=== PATIENT | male | born 1940 | race Hispanic/Latino ===

== ENCOUNTER 2016-12-15 09:28 | Day surgery (SDC) | payer MEDICARE ==
[2016-12-09 14:26] VITALS: BMI 26.9
[2016-12-15] MEDS ORDERED: Propofol 10 mg/ml Inj (20 ML) ONE (10:44)
[2016-12-15] MEDS ORDERED: Sodium Chloride 0.9% 1,000 ML IV SCH (11:30)
[2016-12-15 11:37] VITALS: O2SAT 99
[2016-12-15 12:23] VITALS: BP 134/69; PULSE 51; RESP 16; TEMP 98
== END 2016-12-15 13:05 | disposition home or self-care (01) ==
LOC: ENDO 09:28
PROVIDERS: ATTEND Specialist
DX: Z12.11 Encounter for screening for malignant neoplasm of colon (principal); K57.30 Diverticulosis of large intestine without perforation or abscess without bleeding; K64.8 Other hemorrhoids; I25.10 Atherosclerotic heart disease of native coronary artery without angina pectoris; E78.5 Hyperlipidemia, unspecified; M19.90 Unspecified osteoarthritis, unspecified site
CPT/HCPCS: 45378; J2704; J7040 ×2

== ENCOUNTER 2017-07-05 11:33 | Inpatient (IN) | payer MEDICARE ==
[2017-07-05 11:49] VITALS: BMI 27.3
--- NOTE | 2017-07-05 12:35 | ED PDOC ---
Arrival/HPI - History of Present Illness Time/Duration: Other (2 days) Symptom Onset: Gradual Symptom Course: Unchanged Severity Level: Moderate Activities at Onset: Light Context: Standing, Walking <Radha Brown - Last Filed: 07/05/17 12:24> <SladeWil Perry - Last Filed: 07/05/17 13:50> - General Chief Complaint: Shortness Of Breath Time Seen by Provider: 07/05/17 11:57 - History of Present Illness Narrative History of Present Illness (Text): 07/05/17 12:26 Patient is a 77 year old male with a past medical history of CAD with 3 stents ( 2 in 2007 and 1 in 2012), hypertension, hyperlipidemia, and arthritis who presents to the Emergency department for shortness of breath of 2 days duration. Patient says yesterday he was running errands with no problems however when he got home he started feeling short of breath while standing in his home. Patient says he rested and it improved and slept through the night without orthopnea (uses 2 pillows), then when he woke up this morning and started his usual routine he started to become short of breath again, progressing to where he could barely walk from his car to the front door of the hospital without feeling short of breath. Patient says he usually is able to walk as far as he wants without feeling short of breath. Patient admits to associated dizziness that started around the same time, numbness on the top of his head, and a heavy/fatigued feeling in his legs bilaterally. Patient denies fever, chills, chest pain, palpitations, cough, changes in vision/hearing, lower extremity pain/swelling. recent travel, sore throat, nasal/chest congestion, abdominal pain, N&V, diarrhea, and constipation. Of note patient has a stress test in June 2016 that showed thickened left ventricle however unchanged from June 2015 study and an echo around the same time that showed normal EF with mild/mod pulmonary hypertension, dilated left atrium, and mild mitral and tricuspid regurgitation. (Radha Brown) Past Medical History - Cardiac Hx Hypertension: Yes Hx Pacemaker: No - Neurological Hx Paralysis: No Hx Vertigo: Yes - HEENT Hx Cataracts: Yes - Hematological/Oncological Hx Blood Transfusions: No Hx Blood Transfusion Reaction: No - Musculoskeletal/Rheumatological Hx Musculoskeletal Disorders: Yes - Psychiatric Hx Emotional Abuse: No Hx Physical Abuse: No Hx Substance Use: No - Surgical History Hx Cataract Extraction: Yes Other/Comment: Carpal tunnel surgery on right wrist - Anesthesia Hx Anesthesia Reactions: No Hx Malignant Hyperthermia: No - Suicidal Assessment Feels Threatened In Home Enviroment: No <KevinRadha - Last Filed: 07/05/17 12:24> Family/Social History Family/Social History: No Known Family HX Smoking Status: Never Smoked Hx Alcohol Use: No Hx Substance Use: No <KevinRadha - Last Filed: 07/05/17 12:24> Allergies/Home Meds <KevinRadha - Last Filed: 07/05/17 12:24> <SladeWil Vicky - Last Filed: 07/05/17 13:50> Allergies/Adverse Reactions: Allergies No Known Allergies Allergy (Verified 09/04/12 12:43) Home Medications: Home Meds Medication Instructions Recorded Confirmed Atorvastatin [Lipitor] 20 mg PO DAILY 09/04/12 07/05/17 Metoprolol Succinate [Toprol XL] 25 mg PO DAILY 09/04/12 07/05/17 Aspirin [Ecotrin] 325 mg PO DAILY 07/04/15 07/05/17 Meclizine [Antivert] 12.5 mg PO TID 07/04/15 07/05/17 Review of Systems - Physician Review All systems were reviewed & negative as marked: Yes (as per HPI) - Review of Systems Constitutional: Normal Eyes: Normal ENT: Normal Respiratory: SOB. absent: Cough, Wheezing Cardiovascular: CARRIZALES. absent: Chest Pain, Palpitations, Edema, Calf Pain, Orthopnea Gastrointestinal: Normal. absent: Abdominal Pain, Constipation, Diarrhea, Nausea, Vomiting Musculoskeletal: Neck Pain (due to history of arthritis) Skin: absent: Rash Neurological: Dizziness. absent: Headache, Speech Changes Endocrine: Normal Hemo/Lymphatic: Normal Psychiatric: Normal <Radha Brown - Last Filed: 07/05/17 12:24> Physical Exam - Systems Exam Head: Present: Atraumatic, Normocephalic Pupils: Present: PERRL Extroacular Muscles: Present: EOMI Conjunctiva: Present: Normal Mouth: Present: Moist Mucous Membranes Neck: Present: Paraspinal Tenderness (mild, arthritis ) Respiratory/Chest: Present: Good Air Exchange, Rhonchi. No: Respiratory Distress, Accessory Muscle Use, Wheezes, Decreased Breath Sounds, Rales Cardiovascular: Present: Regular Rate and Rhythm, Normal S1, S2. No: Murmurs, Rub, Gallop Abdomen: Present: Normal Bowel Sounds. No: Tenderness, Distention, Peritoneal Signs Back: Present: Normal Inspection Upper Extremity: Present: Normal Inspection. No: Cyanosis, Edema Lower Extremity: Present: Normal Inspection, Edema (mild, non pitting). No: CALF TENDERNESS Neurological: Present: GCS=15, Speech Normal Skin: Present: Warm, Dry, Normal Color. No: Rashes Psychiatric: Present: Alert, Oriented x 3, Normal Insight, Normal Concentration <Radha Brown - Last Filed: 07/05/17 12:24> Vital Signs Temp Pulse Resp BP Pulse Ox 07/05/17 13:26 59 L 18 152/69 H 99 07/05/17 11:48 98.0 F 57 L 18 156/73 H 99 Medical Decision Making <Radha Brown - Last Filed: 07/05/17 12:24> <Wil June - Last Filed: 07/05/17 13:50> ED Course and Treatment: Seen and examined with resident. 77 y/o M c history of CAD s/p 2 stents p/w dyspnea on exertion x 2 days. CXR no acute disease. Enzymes negative. Already took ASA [address] Wright accepts to hospitalist service. (Wil June) - Lab Interpretations Lab Results: 07/05/17 12:39 07/05/17 12:39 Lab Results 07/05/17 12:39: WBC 5.7 D, RBC 3.82, Hgb 10.9 L, Hct 32.2 L, MCV 84.3, MCH 28.5 , MCHC 33.9, RDW 13.0, Plt Count 203, MPV 8.7, Gran % 74.0 H, Lymph % (Auto) 16.2 L, Loving % (Auto) 8.0 H, Eos % (Auto) 0.9 L, Baso % (Auto) 0.9, Gran # 4.25 , Lymph # (Auto) 0.9 L, Loving # (Auto) 0.5, Eos # (Auto) 0.1, Baso # (Auto) 0.05 07/05/17 12:39: Sodium 132, Potassium 4.1, Chloride 97 L, Carbon Dioxide 25, Anion Gap 15, BUN 16, Creatinine 0.7 L, Est GFR ( Amer) > 60, Est GFR ( Non-Af Amer) > 60, Random Glucose 94, Calcium 8.4, Magnesium 1.8, Total Bilirubin 0.6, AST 37, ALT 40, Alkaline Phosphatase 53, Lactate Dehydrogenase 594, Total Creatine Kinase 152, Troponin I < 0.01, NT-Pro-B Natriuret Pep 283, Total Protein 6.7, Albumin 4.0, Globulin 2.7, Albumin/Globulin Ratio 1.5 - RAD Interpretation Radiology Orders: 07/05/17 12:21 CHEST TWO VIEWS (PA/LAT) [RAD] Stat - PA / [employer] / Resident Statement MD/DO has reviewed & agrees with the documentation as recorded. / has examined the patient and agrees with the treatment plan. <Radha Brown - Last Filed: 07/05/17 12:24> Disposition/Present on Arrival - Present on Arrival History of DVT/PE: No History of Uncontrolled Diabetes: No Urinary Catheter: No History of Decub. Ulcer: No History Surgical Site Infection Following: None <Radha Brown - Last Filed: 07/05/17 12:24> - Present on Arrival Any Indicators Present on Arrival: No - Disposition Have Diagnosis and Disposition been Completed?: Yes Disposition Time: 13:31 Patient Plan: Observation, Telemetry <Wil June - Last Filed: 07/05/17 13:50> - Disposition Diagnosis: Dyspnea on exertion Disposition: HOSPITALIZED Condition: FAIR Forms: [employer] (Urdu)
[2017-07-05 12:55] LABS: BASO # 0.05 K/mm3 (0.0-2.0); BASO % 0.9 % (0.0-3.0); EOS # 0.1 (0.0-0.7); EOS % 0.9 % (1.5-5.0); GRAN # 4.25 (1.4-6.5); HEMOGLOBIN 10.9 g/dL (14.0-18.0); LYMPH # 0.9 (1.2-3.4); LYMPH % 16.2 % (22.0-35.0); MEAN CELL VOLUME 84.3 fl (80.0-105.0); MEAN CORPUSCULAR HEMOGLOBIN 28.5 pg (25.0-35.0); MEAN CORPUSCULAR HGB CONC 33.9 g/dl (31.0-37.0); MEAN PLATELET VOLUME 8.7 fl (7.0-11.0); MONO # 0.5 (0.1-0.6); RBC 3.82 10^6/uL (3.5-6.1); WHITE BLOOD COUNT 5.7 10^3/ul (4.5-11.0)
[2017-07-05 13:07] LABS: ALB/GLOB RATIO 1.5 (1.1-1.8); ALT/SGPT 40 U/L (7-56); AST/SGOT 37 U/L (17-59); BLOOD UREA NITROGEN 16 mg/dL (7-21); CALCIUM 8.4 mg/dL (8.4-10.5); GFR AFRICAN-AMERICAN > 60; GFR NON-AFRICAN AMERICAN > 60
[2017-07-05 13:19] LABS: B-TYPE NATRIURETIC PEPTIDE 283 pg/mL (0-450); TROPONIN I < 0.01 ng/mL
--- NOTE | 2017-07-05 14:14 | RAD ---
HISTORY: SOB COMPARISON: No prior. TECHNIQUE: Chest PA and lateral FINDINGS: LUNGS: No active pulmonary disease. PLEURA: No significant pleural effusion identified. No pneumothorax apparent. CARDIOVASCULAR: Normal. OSSEOUS STRUCTURES: No significant abnormalities. VISUALIZED UPPER ABDOMEN: Normal. OTHER FINDINGS: None. IMPRESSION: No active disease.
--- NOTE | 2017-07-05 14:51 | CP.PCM.HP ---
<Franko Basurto - Last Filed: 07/05/17 14:54> History of Present Illness - History of Present Illness History of Present Illness: Patient is a 77M with a PMH of cardiac cath x2 (2007 x2 stent, LAD/RCA and 2015 x1 stent) comes in complaining of dyspnea on exertion. He states that he started having episodes of SOB earlier in the week but today it got to the point that he was unable to walk to the bathroom without getting SOB where he had to stop to catch his breath. On a normal day he is able to exercise on the treadmill and elliptical without a problem. He states he came to the hospital today for cardiac rehab the he usually does three times a week but on getting to the elevator he was incredibly SOB so he decided to go to the ED. He denies having ant chest pain, palpitations, nausea, vomiting or diaphoresis. He sees Dr. Davis as cardio. He has had a long history of dizziness that has been thoroughly worked up by a neurologist and takes antivert at home for this. Denies any orthopnea or PND and is able to lay flat to sleep. Denies any episodes of syncope or blurry vision but still gets these episodes of dizziness as previously described. The SOB is relieved with rest. Denies any recent illness, sick contacts or recent travel. Has this bilateral leg swelling that he states he has had for over a decade. PMH: cardiac cath x two stents, No CA PSH: Right hand surgery for carpal tunnel, bilateral cataracts FH: mother in mid 80s 2 years after an CA, father in late 90s 2/2 to PNA SH: 3 packs per day from the ages of 12-21, denies alcohol or drug use Meds: Metoprolol 25 Daily, ASA 325 QD, Lipitor 20 HS, Antiver TID PRN Allergies: NKA PMD: Dr. Duong Cardio: Dr. Davis Present on Admission - Present on Admission Any Indicators Present on Admission: No Review of Systems - Review of Systems Review of Systems: per hpi Past Patient History - Past Social History Smoking Status: Never Smoked - CARDIAC Hx Hypertension: Yes Hx Pacemaker: No - NEUROLOGICAL Hx Paralysis: No Hx Vertigo: Yes - HEENT Hx Cataracts: Yes - HEMATOLOGICAL/ONCOLOGICAL Hx Blood Transfusions: No Hx Blood Transfusion Reaction: No - MUSCULOSKELETAL/RHEUMATOLOGICAL Hx Musculoskeletal Disorders: Yes - PSYCHIATRIC Hx Emotional Abuse: No Hx Physical Abuse: No Hx Substance Use: No - SURGICAL HISTORY Hx Cataract Extraction: Yes Other/Comment: Carpal tunnel surgery on right wrist - ANESTHESIA Hx Anesthesia Reactions: No Hx Malignant Hyperthermia: No Meds Allergies/Adverse Reactions: Allergies Allergy/AdvReac Type Severity Reaction Status Date / Time No Known Allergies Allergy Verified 07/05/17 21:16 Physical Exam - Constitutional Appears: Well - Head Exam Head Exam: ATRAUMATIC, NORMAL INSPECTION, NORMOCEPHALIC - Eye Exam Eye Exam: EOMI, Normal appearance, PERRL Pupil Exam: NORMAL ACCOMODATION, PERRL - ENT Exam ENT Exam: Mucous Membranes Moist, Normal Exam - Neck Exam Neck exam: Positive for: Normal Inspection - Respiratory Exam Respiratory Exam: Clear to Auscultation Bilateral, NORMAL BREATHING PATTERN - Cardiovascular Exam Cardiovascular Exam: REGULAR RHYTHM - GI/Abdominal Exam GI & Abdominal Exam: Normal Bowel Sounds, Soft. absent: Distended, Tenderness - Extremities Exam Extremities exam: Positive for: joint swelling (bilateral 1+ pitting edema of the lower extremities), normal inspection - Back Exam Back exam: NORMAL INSPECTION - Neurological Exam Neurological exam: Alert, CN II-XII Intact, Normal Gait, Oriented x3, Reflexes Normal - Psychiatric Exam Psychiatric exam: Normal Affect, Normal Mood - Skin Skin Exam: Dry, Intact, Normal Color, Warm Results - Vital Signs Recent Vital Signs: Last Vital Signs Temp 98.0 F 07/05/17 11:48 Pulse 59 L 07/05/17 13:26 Resp 18 07/05/17 13:26 BP 152/69 H 07/05/17 13:26 Pulse Ox 99 07/05/17 13:26 - Labs Result Diagrams: 07/05/17 12:39 07/05/17 12:39 Assessment & Plan (1) Dyspnea on exertion Assessment and Plan: Cardio (Davis) Troponin Q6H x 2, first trop negative EKG Q6H x 2, First EKG sinus christa D-Dimer - F/U Echo - F/U BNP negative Status: Acute Priority: High (2) CAD, multiple vessel Assessment and Plan: ASA 325 QD Lipitor 20 PO HS Metoprolol Succ 25 PO QD Status: Chronic Priority: High (3) Dizziness Assessment and Plan: Long history, previously worked up Antivert 12.5 PO TID PRN Status: Chronic Priority: Low (4) Prophylactic measure Assessment and Plan: Heparin SCD CI 2/2 to swelling and r/o dvt No GI PPx indicated at this time Status: Acute Priority: Low <Juliana Rebolledo - Last Filed: 07/06/17 11:20> Results - Vital Signs Recent Vital Signs: Last Vital Signs Temp 97.4 F L 07/06/17 06:00 Pulse 58 L 07/06/17 09:49 Resp 18 07/06/17 06:00 BP 145/78 07/06/17 09:32 Pulse Ox 98 07/06/17 09:00 - Labs Result Diagrams: 07/06/17 06:00 07/06/17 06:00 Attending/Attestation - Attestation I have personally seen and examined this patient.: Yes I have fully participated in the care of the patient.: Yes I have reviewed all pertinent clinical information: Yes Notes (Text): I have seen and examined the patient at bedside. Agree with the above note with the following additions/ exceptions: Briefly this is 77 year old male with history of cardiac cath s/p 2 stents (RCA & LAD)who came for evaluation of CARRIZALES which lasted for couple of hours. Denies any symptoms now. Patient has been compliant with his medications. First set of troponin and EKG is unremarkable. Will order d dimer, echo and cardiology consult. BNP and CXR negative for vascular congestion. Upon discharge patient will follow up with Dr Araiza and Dr Davis. Dr Juliana Rebolledo
[2017-07-05 15:20] LABS: IRON 69 ug/dL (45-180)
[2017-07-05 15:21] LABS: HDL CHOLESTEROL 43 mg/dL (29-60)
[2017-07-05 15:30] LABS: % IRON SATURATION 21 % (20-55); TOTAL IRON BINDING CAPACITY 322 ug/dL (261-462)
[2017-07-05 15:32] LABS: LDL CHOLESTEROL 55 mg/dL (0-129)
[2017-07-05 20:48] LABS: FERRITIN 82.5 ng/mL
[2017-07-05 21:20] LABS: FOLATE > 20.0 ng/mL
[2017-07-05] MEDS ORDERED: Pneumococcal 23-Valent Vaccine IM ONE (22:46)
[2017-07-06 06:46] LABS: BASO # 0.1 K/mm3 (0.0-2.0); BASO % 1.8 % (0.0-3.0); EOS # 0.1 (0.0-0.7); EOS % 2.5 % (1.5-5.0); GRAN # 3.4 (1.4-6.5); GRAN % 61.3 % (50.0-68.0); HEMOGLOBIN 12.1 g/dL (14.0-18.0); LYMPH # 1.4 (1.2-3.4); LYMPH % 24.9 % (22.0-35.0); MEAN CELL VOLUME 84.7 fl (80.0-105.0); MEAN CORPUSCULAR HEMOGLOBIN 28.5 pg (25.0-35.0); MEAN CORPUSCULAR HGB CONC 33.6 g/dl (31.0-37.0); MEAN PLATELET VOLUME 8.8 fl (7.0-11.0); MONO # 0.5 (0.1-0.6); MONO % 9.5 % (1.0-6.0); RBC 4.25 10^6/uL (3.5-6.1); RED CELL DISTRIBUTION WIDTH 13.4 % (11.5-14.5); WHITE BLOOD COUNT 5.6 10^3/ul (4.5-11.0)
[2017-07-06 07:18] LABS: T4 7.3 ug/dL (5.5-11.0)
[2017-07-06 07:31] LABS: ALB/GLOB RATIO 1.4 (1.1-1.8); ALBUMIN 4.1 g/dL (3.0-4.8); ALT/SGPT 29 U/L (7-56); AST/SGOT 45 U/L (17-59); BLOOD UREA NITROGEN 14 mg/dL (7-21); CALCIUM 8.8 mg/dL (8.4-10.5); GFR AFRICAN-AMERICAN > 60; GFR NON-AFRICAN AMERICAN > 60
--- NOTE | 2017-07-06 08:17 | CARD ---
APPROVED REPORT EKG Measurement Heart [id number] ME [id number] <Conclusion> Sinus bradycardia Otherwise normal ECG
[2017-07-06] MEDS: Metoprolol Succinate 25 mg XL Tab PO SCH (09:32)
[2017-07-06] MEDS: Aspirin 325 mg EC Tablets PO SCH (09:33)
[2017-07-06] MEDS ORDERED: Enoxaparin 80 mg Syringe SC ONE ×2 (10:00→14:00)
--- NOTE | 2017-07-06 11:24 | CP.PCM.PN ---
<Franko Basurto - Last Filed: 07/06/17 11:18> Subjective - Date & Time of Evaluation Date of Evaluation: 07/06/17 Time of Evaluation: 11:18 - Subjective Subjective: Patient seen and examined at bedside. No complaints at this time. Was able to ambulate to the bathroom today without any SOB. Denies any chest pain or diaphoresis. Objective - Vital Signs/Intake and Output Vital Signs (last 24 hours): Temp Pulse Resp BP Pulse Ox 97.4 F L 58 L 18 145/78 98 07/06/17 06:00 07/06/17 09:49 07/06/17 06:00 07/06/17 09:32 07/06/17 09:00 - Medications Medications: Current Medications Aspirin (Ecotrin) 325 mg PO DAILY [facility] Last Admin: 07/06/17 09:33 Dose: 325 mg Atorvastatin Calcium (Lipitor) 20 mg PO DAILY [facility] Last Admin: 07/06/17 09:33 Dose: 20 mg Clopidogrel Bisulfate (Plavix) 75 mg PO DAILY [facility] Enoxaparin Sodium (Lovenox) 70 mg SC ONCE ONE Stop: 07/06/17 14:01 Meclizine HCl (Antivert) 12.5 mg PO TID PRN PRN Reason: Dizziness Metoprolol Succinate (Toprol Xl) 25 mg PO DAILY [facility] Last Admin: 07/06/17 09:32 Dose: 25 mg - Constitutional Appears: Well - Head Exam Head Exam: ATRAUMATIC, NORMAL INSPECTION, NORMOCEPHALIC - Eye Exam Eye Exam: EOMI, Normal appearance, PERRL Pupil Exam: NORMAL ACCOMODATION, PERRL - ENT Exam ENT Exam: Mucous Membranes Moist, Normal Exam - Neck Exam Neck Exam: Full ROM, Normal Inspection. absent: Lymphadenopathy - Respiratory Exam Respiratory Exam: Clear to Ausculation Bilateral, NORMAL BREATHING PATTERN - Cardiovascular Exam Cardiovascular Exam: REGULAR RHYTHM, +S1, +S2. absent: Murmur - GI/Abdominal Exam GI & Abdominal Exam: Soft, Normal Bowel Sounds. absent: Tenderness - Extremities Exam Extremities Exam: Full ROM, Normal Capillary Refill, Normal Inspection. absent : Joint Swelling, Pedal Edema - Back Exam Back Exam: NORMAL INSPECTION - Neurological Exam Neurological Exam: Alert, Awake, CN II-XII Intact, Normal Gait, Oriented x3 - Psychiatric Exam Psychiatric exam: Normal Affect, Normal Mood - Skin Skin Exam: Dry, Intact, Normal Color, Warm Assessment and Plan - Assessment and Plan (Free Text) Assessment: (1) Dyspnea on exertion Assessment and Plan: Cardio (Davis) Trops negative x3 EKG x3 do not show any ST changes or arrythmogenic intervals D-Dimer - negative Echo - F/U BNP negative Status: Acute Priority: High (2) CAD, multiple vessel Assessment and Plan: Going for cath tomorrow - NPO PMN lovenox 70 x1 Plavix 600 x1 Plavix 75 QD ASA 325 QD Lipitor 20 PO HS Metoprolol Succ 25 PO QD Status: Chronic Priority: High (3) Dizziness Assessment and Plan: Long history, previously worked up Antivert 12.5 PO TID PRN Status: Chronic Priority: Low (4) Prophylactic measure Assessment and Plan: Lovenox and Plavix SCD CI 2/2 to swelling and r/o dvt No GI PPx indicated at this time Status: Acute Priority: Low <Juliana Rebolledo - Last Filed: 07/08/17 15:03> Objective - Vital Signs/Intake and Output Vital Signs (last 24 hours): Temp Pulse Resp BP Pulse Ox 97.6 F 63 20 133/64 97 07/08/17 06:47 07/08/17 10:00 07/08/17 06:47 07/08/17 09:12 07/08/17 06:47 Intake and Output: 07/08/17 07/08/17 06:59 18:59 Intake Total 300 Balance 300 - Labs Labs: 07/08/17 05:30 07/08/17 05:30 Attending/Attestation - Attestation I have personally seen and examined this patient.: Yes I have fully participated in the care of the patient.: Yes I have reviewed all pertinent clinical information, including history, physical exam and plan: Yes Notes (Text): I have seen and examined the patient at bedside. Agree with the above note with the following additions/ exceptions: Briefly this is 77 year old male with history of cardiac cath s/p 2 stents (RCA & LAD)who came for evaluation of CARRIZALES which lasted for couple of hours. Patient feels better now. Patient has been compliant with his medications. Serial troponin and EKG is unremarkable. D Dimer is negative. Echo pending. Cardiology consult appreciated. Plan for cardiac cath pending. BNP and CXR negative for vascular congestion. Upon discharge patient will follow up with Dr Araiza and Dr Davis. Dr Juliana Rebolledo
--- NOTE | 2017-07-06 12:09 | CON ---
DATE: 07/06/2017 CARDIOLOGY CONSULTATION: HISTORY: The patient is a 77-year-old male, who presents with progressive exertional shortness of breath to a point where he was unable to walk less than a quarter block. He denies angina. The patient's past medical history is notable for hypercholesterolemia as well as hypertension. He has had PTCA and stent in the past. His last stress test which was less than 12 months ago was unremarkable. Because of his progressive symptoms to including symptoms at rest, the patient will be considered for cardiac catheterization. SOCIAL HISTORY: The patient does not smoke. REVIEW OF SYSTEMS: Fourteen-point review of systems was reviewed in detail. No additional symptoms other than the ones above. PHYSICAL EXAMINATION: VITAL SIGNS: Blood pressure is 149/74 with the heart rates in the 50s. NECK: Negative JVD. LUNGS: Without rales. HEART: Reveals S1, S2. EXTREMITIES: Without edema. LABORATORY DATA: Hemoglobin is 12.1. Chemistries: BUN and creatinine are unremarkable. Troponins are negative x2. IMPRESSION: 1. Progressive anginal equivalent. 2. High probability for new CAD lesion. 3. History of percutaneous transluminal coronary angioplasty and stents in the past. 4. Hypercholesterolemia. 5. Hypertension. PLAN: Given these findings, we will start the patient on aspirin and Plavix. The subcu Lovenox will be ordered. I have discussed cardiac catheterization with the patient and family in detail. They are agreeable. Gary Davis MD
--- NOTE | 2017-07-06 14:35 | CARD ---
APPROVED REPORT EKG Measurement Heart [id number] [place] [id number] <Conclusion> Sinus bradycardia Otherwise normal ECG
--- NOTE | 2017-07-06 17:27 | CARD ---
APPROVED REPORT EXAM: Two-dimensional and M-mode echocardiogram with Doppler and color Doppler. INDICATION Cardiac Disease: CAD 2D DIMENSIONS Left Atrium (2D)4.9 (1.6-4.0cm)IVSd1.0 (0.7-1.1cm) LVDd5.7 (3.9-5.9cm)PWd1.0 (0.7-1.1cm) LVDs3.6 (2.5-4.0cm)FS (%) 36.8 % LVEF (%)66.0 (>50%) M-Mode DIMENSIONS Aortic Root3.20 (2.2-3.7cm)Aortic Cusp Exc.1.60 (1.5-2.0cm) Aortic Valve AoV Peak Xhkonbzk080.0cm/sAoV VTI45.0cmAO Peak GR.13mmHg LVOT Peak Gytmjmub946.0cm/sLVOT VTI29.90cmAO Mean GR.8mmHg AI P 1/2 Gnev698bl Mitral Valve MV E Uvkvgedf00.8cm/sMV A Emwqsalf387.0cm/sE/A ratio0.7 TDI Lateral E' Peak V7.99cm/sMedial E' Peak V7.12cm/sE/Lateral E'10.7 E/Medial E'12.1 Pulmonary Valve PV Peak Dosajgjr18.4cm/sPV Peak Grad.1mmHg Tricuspid Valve TR Peak Jkyprscu289qi/sRAP [id number] Peak Gr.30mmHg [id number] LEFT VENTRICLE The left ventricle is normal size. There is normal left ventricular wall thickness. The left ventricular function is normal. The left ventricular ejection fraction is within the normal range. Transmitral Doppler flow pattern is Grade I-abnormal relaxation pattern. RIGHT VENTRICLE The right ventricle is normal size. There is normal right ventricular wall thickness. The right ventricular systolic function is normal. ATRIA The left atrium is mildly dilated. The right atrium size is normal. AORTIC VALVE The aortic valve is moderately sclerotic. There is mild to moderate aortic regurgitation. There is trace valvular aortic stenosis. MITRAL VALVE The mitral valve is mildly thickened. Mitral regurgitation is mild. TRICUSPID VALVE There is mild tricuspid regurgitation. There is mild pulmonary hypertension. GREAT VESSELS The aortic root is normal in size. PERICARDIAL EFFUSION There is no pericardial effusion. <Conclusion> The left ventricle is normal size. There is normal left ventricular wall thickness. The left ventricular function is normal. The left ventricular ejection fraction is within the normal range. Transmitral Doppler flow pattern is Grade I-abnormal relaxation pattern. There is mild to moderate aortic regurgitation. Mitral regurgitation is mild. There is mild tricuspid regurgitation. There is mild pulmonary hypertension.
[2017-07-07 06:33] LABS: BASO # 0.08 K/mm3 (0.0-2.0); BASO % 1.6 % (0.0-3.0); EOS # 0.2 (0.0-0.7); EOS % 3.3 % (1.5-5.0); GRAN # 2.3 (1.4-6.5); GRAN % 47.2 % (50.0-68.0); HEMOGLOBIN 12.3 g/dL (14.0-18.0); LYMPH # 1.8 (1.2-3.4); LYMPH % 36.6 % (22.0-35.0); MEAN CELL VOLUME 84.4 fl (80.0-105.0); MEAN CORPUSCULAR HGB CONC 34.4 g/dl (31.0-37.0); MEAN PLATELET VOLUME 8.7 fl (7.0-11.0); MONO # 0.6 (0.1-0.6); MONO % 11.3 % (1.0-6.0); RBC 4.24 10^6/uL (3.5-6.1); RED CELL DISTRIBUTION WIDTH 13.2 % (11.5-14.5); WHITE BLOOD COUNT 4.9 10^3/ul (4.5-11.0)
[2017-07-07] MEDS: Aspirin 325 mg EC Tablets PO SCH (06:42)
[2017-07-07] MEDS ORDERED: Lidocaine 2% Inj (20ml) ONE (06:51)
[2017-07-07] MEDS ORDERED: Midazolam 2 MG/2 ML VIAL ONE ×2 (06:51→07:11)
[2017-07-07] MEDS ORDERED: Phenylephrine 10 mg/ml Inj ONE (06:51)
[2017-07-07] MEDS ORDERED: Iohexol 350mgl/ml 50 ML ONE (06:52)
[2017-07-07] MEDS ORDERED: Nitroglycerin 50mg in D5W 0 MG/0 ML BOTTLE IV ONE (06:52)
[2017-07-07] MEDS ORDERED: Iodixanol 320 MG/ML 100 ML BOTTLE IV ONE (06:52)
[2017-07-07] MEDS ORDERED: Iodixanol 320 MG/ML 200 ML BOTTLE IV ONE (06:52)
[2017-07-07 07:13] LABS: ALB/GLOB RATIO 1.4 (1.1-1.8); ALT/SGPT 33 U/L (7-56); AST/SGOT 47 U/L (17-59); BLOOD UREA NITROGEN 19 mg/dL (7-21); CALCIUM 8.5 mg/dL (8.4-10.5); GFR AFRICAN-AMERICAN > 60; GFR NON-AFRICAN AMERICAN > 60
[2017-07-07] MEDS ORDERED: Sodium Chloride 0.9% 1,000 ML IV SCH (09:15)
[2017-07-07] MEDS: Metoprolol Succinate 25 mg XL Tab PO SCH (09:22)
--- NOTE | 2017-07-07 11:21 | CP.PCM.PN ---
<Franko Basurto - Last Filed: 07/07/17 11:15> Subjective - Date & Time of Evaluation Date of Evaluation: 07/07/17 Time of Evaluation: 11:15 - Subjective Subjective: patient seen and examined at bedside. went for cath this am for which he tolerated well. No other complaints at this time. Objective - Vital Signs/Intake and Output Vital Signs (last 24 hours): Temp Pulse Resp BP Pulse Ox 97.9 F 48 L 16 125/77 95 07/07/17 09:15 07/07/17 10:15 07/07/17 10:15 07/07/17 10:15 07/07/17 06:00 Intake and Output: 07/07/17 07/07/17 06:59 18:59 Intake Total 180 Output Total 3 Balance 177 - Medications Medications: Current Medications Aspirin (Ecotrin) 81 mg PO DAILY [facility] Last Admin: 07/07/17 09:21 Dose: Not Given Atorvastatin Calcium (Lipitor) 20 mg PO DAILY [facility] Last Admin: 07/07/17 09:22 Dose: 20 mg Atorvastatin Calcium (Lipitor) 40 mg PO DIN [place] Clopidogrel Bisulfate (Plavix) 75 mg PO DAILY [facility] Last Admin: 07/07/17 09:22 Dose: Not Given Sodium Chloride (Sodium Chloride 0.9%) 1,000 mls @ 100 mls/hr IV .Q10H [facility] Stop: 07/07/17 15:00 Last Admin: 07/07/17 09:23 Dose: 100 mls/hr Meclizine HCl (Antivert) 12.5 mg PO TID PRN PRN Reason: Dizziness Metoprolol Succinate (Toprol Xl) 25 mg PO DAILY [facility] Last Admin: 07/07/17 09:22 Dose: 25 mg - Labs Labs: 07/07/17 05:30 07/07/17 05:30 - Constitutional Appears: Well - Head Exam Head Exam: ATRAUMATIC, NORMAL INSPECTION, NORMOCEPHALIC - Eye Exam Eye Exam: EOMI, Normal appearance, PERRL Pupil Exam: NORMAL ACCOMODATION, PERRL - ENT Exam ENT Exam: Mucous Membranes Moist, Normal Exam - Neck Exam Neck Exam: Full ROM, Normal Inspection. absent: Lymphadenopathy - Respiratory Exam Respiratory Exam: Clear to Ausculation Bilateral, NORMAL BREATHING PATTERN - Cardiovascular Exam Cardiovascular Exam: REGULAR RHYTHM, +S1, +S2. absent: Murmur - GI/Abdominal Exam GI & Abdominal Exam: Soft, Normal Bowel Sounds. absent: Distended, Tenderness - Extremities Exam Extremities Exam: Full ROM, Normal Capillary Refill, Normal Inspection. absent : Joint Swelling, Pedal Edema - Back Exam Back Exam: NORMAL INSPECTION - Neurological Exam Neurological Exam: Alert, Awake, CN II-XII Intact, Normal Gait, Oriented x3 - Psychiatric Exam Psychiatric exam: Normal Affect, Normal Mood - Skin Skin Exam: Dry, Intact, Normal Color, Warm Assessment and Plan - Assessment and Plan (Free Text) Assessment: (1) Dyspnea on exertion Assessment and Plan: Cardio (Davis) Trops and EKG normal Cath today with stent in RCA. Will monitor overnight and have patient return next week for stenting of LAD Status: Acute Priority: High (2) CAD, multiple vessel Assessment and Plan: ASA 81 QD Lipitor 40 PO HS Metoprolol Succ 25 PO QD Plavix 75 PO QD Status: Chronic Priority: High (3) Dizziness Assessment and Plan: Long history, previously worked up Antivert 12.5 PO TID PRN Status: Chronic Priority: Low (4) Prophylactic measure Assessment and Plan: SCD CI 2/2 to swelling and r/o dvt No GI PPx indicated at this time Status: Acute Priority: Low <Juliana Rebolledo - Last Filed: 07/08/17 15:04> Objective - Vital Signs/Intake and Output Vital Signs (last 24 hours): Temp Pulse Resp BP Pulse Ox 97.6 F 63 20 133/64 97 07/08/17 06:47 07/08/17 10:00 07/08/17 06:47 07/08/17 09:12 07/08/17 06:47 Intake and Output: 07/08/17 07/08/17 06:59 18:59 Intake Total 300 Balance 300 - Labs Labs: 07/08/17 05:30 07/08/17 05:30 Attending/Attestation - Attestation I have personally seen and examined this patient.: Yes I have fully participated in the care of the patient.: Yes I have reviewed all pertinent clinical information, including history, physical exam and plan: Yes Notes (Text): I have seen and examined the patient at bedside. Agree with the above note with the following additions/ exceptions: Briefly this is 77 year old male with history of cardiac cath s/p 2 stents (RCA & LAD)who came for evaluation of CARRIZALES which lasted for couple of hours. Serial troponin and EKG is unremarkable. D Dimer is negative. Echo pending. Cardiology consult appreciated. Plan for cardiac cath today. BNP and CXR negative for vascular congestion. Upon discharge patient will follow up with Dr Araiza and Dr Davis. Dr Juliana Rebolledo
--- NOTE | 2017-07-07 11:59 | CARDCATH ---
PROCEDURE DATE: 07/07/2017 HISTORY: The patient is a 77-year-old male with multiple cardiac risk factors including hypercholesterolemia and hypertension and is status post multivessel PTCA and stent in the past, who presents with exertional shortness of breath. Stress test performed 8 months ago revealed no ischemia. Because of his ongoing symptoms including progressive symptoms at rest, cardiac catheterization was recommended. PROCEDURE: Left heart catheterization with coronary arteriography, left ventriculogram, supra-aortic valvular injection as well as PTCA and stent of an RCA. The right femoral artery was cannulated with a 6-[place] sheath. There were no complications. I performed moderate sedation, which included the presence of an independent trained observer that assisted in monitoring the patient's level of consciousness and physiologic status. After administration of Versed and fentanyl, my intra service time was 30 minutes. The findings on catheterization revealed a left ventricle that contracted normally. Estimated ejection fraction of 60%. Supra-aortic valvular injection revealed no aortic insufficiency. His coronary anatomy revealed a patent stent in the midportion of the RCA which is a dominant vessel. Just proximal to the RCA, there is a 50% stenoses noted. Distal to the RCA, there was a 70-80% stenoses noted. The left main artery revealed intimal irregularities without significant stenoses. The LAD was diffusely diseased with diffuse atherosclerosis. In the proximal portion, there was a 40-50% stenosis noted. In the midportion, there was a tortuous 80-90% stenoses noted in the LAD. The circumflex artery and obtuse marginal branch revealed diffuse atherosclerosis without critical lesions. The patient was started on intravenous Angiomax on the fluoroscopic guide, the guiding catheter was placed in the ostium of the RCA. An 0.014 ATW wire was used to cross the critical lesion. A 2.5 balloon was utilized to predilate the lesion. A 2.75 x 15 mm drug-eluting stent was placed and deployed at 14 atmospheres of pressure in the mid RCA lesion. Repeat coronary arteriography revealed an excellent result with no residual stenosis and VERNA III flow. Angio-Seal was used to close the femoral artery site. The patient tolerated the procedure well. In summary, the procedure was successful PTCA and stent of the mid RCA stenoses. Cardiac catheterization reveals multivessel CAD. Given these findings, we will bring the patient back in 1 week for PTCA and stent of the mid LAD. The patient will need to remain on aspirin and Plavix with Plavix for at least a year. Gary Davis MD [facility] # [id number]
--- NOTE | 2017-07-07 14:09 | CARD ---
APPROVED REPORT EKG Measurement Heart [id number] [id number] <Conclusion> Sinus bradycardia Otherwise normal ECG
[2017-07-08 06:30] LABS: BASO # 0.09 K/mm3 (0.0-2.0); BASO % 1.5 % (0.0-3.0); EOS # 0.2 (0.0-0.7); EOS % 2.8 % (1.5-5.0); GRAN # 3.73 (1.4-6.5); GRAN % 62.6 % (50.0-68.0); HEMOGLOBIN 12.1 g/dL (14.0-18.0); LYMPH # 1.3 (1.2-3.4); LYMPH % 21.4 % (22.0-35.0); MEAN CELL VOLUME 84.8 fl (80.0-105.0); MEAN CORPUSCULAR HEMOGLOBIN 28.7 pg (25.0-35.0); MEAN CORPUSCULAR HGB CONC 33.9 g/dl (31.0-37.0); MEAN PLATELET VOLUME 8.7 fl (7.0-11.0); MONO # 0.7 (0.1-0.6); MONO % 11.7 % (1.0-6.0); RBC 4.21 10^6/uL (3.5-6.1); RED CELL DISTRIBUTION WIDTH 13.4 % (11.5-14.5)
[2017-07-08 06:48] VITALS: RESP 20; TEMP 97.6; O2SAT 97
[2017-07-08 07:26] LABS: ALB/GLOB RATIO 1.3 (1.1-1.8); ALBUMIN 3.7 g/dL (3.0-4.8); ALT/SGPT 29 U/L (7-56); AST/SGOT 32 U/L (17-59); BLOOD UREA NITROGEN 13 mg/dL (7-21); CALCIUM 8.5 mg/dL (8.4-10.5); GFR AFRICAN-AMERICAN > 60; GFR NON-AFRICAN AMERICAN > 60
[2017-07-08] MEDS: Metoprolol Succinate 25 mg XL Tab PO SCH (09:12)
[2017-07-08 09:14] VITALS: BP 133/64
--- NOTE | 2017-07-08 10:06 | PN ---
DATE: 07/08/2017 CARDIOLOGY FOLLOWUP SUBJECTIVE: The patient is chest pain free. OBJECTIVE: VITAL SIGNS: Blood pressure is 133/64, heart rate is in the 70s. NECK: Negative JVD. LUNGS: Without rales. HEART: Reveal S1, S2. EXTREMITIES: Without edema. The right groin site is stable. DATA: Hemoglobin is 12.1, BUN and creatinine unremarkable. IMPRESSION: 1. Stable post percutaneous transluminal coronary angioplasty and stent of an right coronary artery. 2. Coronary artery disease. 3. Multivessel coronary artery disease. 4. Dyspnea. 5. Angina. Given these findings, the patient is stable for discharge today. He is scheduled to come back next week for PTCA and stent of the mid LAD stenoses. Gary Davis MD
[2017-07-08 10:44] VITALS: PULSE 63
--- NOTE | 2017-07-08 11:25 | CP.PCM.DIS ---
<Franko Basurto - Last Filed: 07/08/17 11:31> Provider - Provider Date of Admission: 07/06/17 11:03 Attending physician: Juliana Rebolledo MD Primary care physician: Lavon Duong MD Consults: Linda: Ryan Time Spent in preparation of Discharge (in minutes): 45 Hospital Course - Lab Results Lab Results: Most Recent Lab Values WBC 6.0 10^3/ul (4.5-11.0) D 07/08/17 05:30 RBC 4.21 10^6/uL (3.5-6.1) 07/08/17 05:30 Hgb 12.1 g/dL (14.0-18.0) L 07/08/17 05:30 Hct 35.7 % (42.0-52.0) L 07/08/17 05:30 MCV 84.8 fl (80.0-105.0) 07/08/17 05:30 MCH 28.7 pg (25.0-35.0) 07/08/17 05:30 MCHC 33.9 g/dl (31.0-37.0) 07/08/17 05:30 RDW 13.4 % (11.5-14.5) 07/08/17 05:30 Plt Count 209 10^3/uL (120.0-450.0) 07/08/17 05:30 MPV 8.7 fl (7.0-11.0) 07/08/17 05:30 Gran % 62.6 % (50.0-68.0) 07/08/17 05:30 Lymph % (Auto) 21.4 % (22.0-35.0) L 07/08/17 05:30 [place] % (Auto) 11.7 % (1.0-6.0) H 07/08/17 05:30 Eos % (Auto) 2.8 % (1.5-5.0) 07/08/17 05:30 Baso % (Auto) 1.5 % (0.0-3.0) 07/08/17 05:30 Gran # 3.73 (1.4-6.5) 07/08/17 05:30 Lymph # (Auto) 1.3 (1.2-3.4) 07/08/17 05:30 [place] # (Auto) 0.7 (0.1-0.6) H 07/08/17 05:30 Eos # (Auto) 0.2 (0.0-0.7) 07/08/17 05:30 Baso # (Auto) 0.09 K/mm3 (0.0-2.0) 07/08/17 05:30 Retic Count 1.04 % (0.5-1.5) 07/05/17 19:07 D-Dimer, Quantitative < 200 ng/mL (0-243) 07/05/17 12:39 Sodium 143 mmol/L (132-148) 07/08/17 05:30 Potassium 4.2 mmol/L (3.6-5.0) 07/08/17 05:30 Chloride 107 mmol/L (98-107) 07/08/17 05:30 Carbon Dioxide 25 mmol/L (21-33) 07/08/17 05:30 Anion Gap 15 (10-20) 07/08/17 05:30 BUN 13 mg/dL (7-21) 07/08/17 05:30 Creatinine 0.7 mg/dl (0.8-1.5) L 07/08/17 05:30 Est GFR ( Amer) > 60 07/08/17 05:30 Est GFR (Non-Af Amer) > 60 07/08/17 05:30 Random Glucose 91 mg/dL (70-110) 07/08/17 05:30 Hemoglobin A1c 5.5 % (4.2-6.5) 07/05/17 12:39 Calcium 8.5 mg/dL (8.4-10.5) 07/08/17 05:30 Phosphorus 3.9 mg/dL (2.5-4.5) 07/06/17 06:00 Magnesium 2.0 mg/dL (1.7-2.2) 07/06/17 06:00 Iron 69 ug/dL (45-180) 07/05/17 12:39 TIBC 322 ug/dL (261-462) 07/05/17 12:39 % Saturation 21 % (20-55) 07/05/17 12:39 Ferritin 82.5 ng/mL 07/05/17 12:39 Total Bilirubin 0.4 mg/dL (0.2-1.3) 07/08/17 05:30 AST 32 U/L (17-59) 07/08/17 05:30 ALT 29 U/L (7-56) 07/08/17 05:30 Alkaline Phosphatase 53 U/L (38-126) 07/08/17 05:30 Lactate Dehydrogenase 594 U/L (333-699) 07/05/17 12:39 Total Creatine Kinase 152 U/L (35-230) 07/05/17 12:39 Troponin I < 0.01 ng/mL 07/06/17 00:40 NT-Pro-B Natriuret Pep 283 pg/mL (0-450) 07/05/17 12:39 Total Protein 6.4 g/dL (5.8-8.3) 07/08/17 05:30 Albumin 3.7 g/dL (3.0-4.8) 07/08/17 05:30 Globulin 2.8 gm/dL 07/08/17 05:30 Albumin/Globulin Ratio 1.3 (1.1-1.8) 07/08/17 05:30 Triglycerides 67 mg/dL (35-160) 07/05/17 12:39 Cholesterol 119 mg/dL (130-200) L 07/05/17 12:39 LDL Cholesterol Direct 55 mg/dL (0-129) 07/05/17 12:39 HDL Cholesterol 43 mg/dL (29-60) 07/05/17 12:39 Vitamin B12 725 pg/mL (239-931) 07/05/17 12:39 Folate > 20.0 ng/mL 07/05/17 12:39 Thyroxine (T4) 7.3 ug/dL (5.5-11.0) 07/06/17 06:00 TSH 3rd Generation 1.38 mIU/mL (0.46-4.68) 07/06/17 06:00 - Hospital Course Hospital Course: Patient is a 77M with a PMH of cardiac cath x2 (2007 x2 stent, LAD/RCA and 2015 x1 stent) comes in complaining of dyspnea on exertion. He states that he started having episodes of SOB earlier in the week but today it got to the point that he was unable to walk to the bathroom without getting SOB where he had to stop to catch his breath. On a normal day he is able to exercise on the treadmill and elliptical without a problem. He states he came to the hospital today for cardiac rehab the he usually does three times a week but on getting to the elevator he was incredibly SOB so he decided to go to the ED. He denies having ant chest pain, palpitations, nausea, vomiting or diaphoresis. He sees Dr. Davis as cardio. He has had a long history of dizziness that has been thoroughly worked up by a neurologist and takes antivert at home for this. Denies any orthopnea or PND and is able to lay flat to sleep. Denies any episodes of syncope or blurry vision but still gets these episodes of dizziness as previously described. The SOB is relieved with rest. Denies any recent illness, sick contacts or recent travel. Has this bilateral leg swelling that he states he has had for over a decade. Hospital course: Patient was seen by Dr. Davis who took him to the labor relations specialist the next day for stenting of the RCA. He also found disease in the LAD and planned for the patient to come back next week for stenting of the LAD. Patient to start plavix 75 daily, increase his Lipitor to 40 daily and decrease aspirin to 81mg daily Discharge Exam - Head Exam Head Exam: ATRAUMATIC, NORMAL INSPECTION, NORMOCEPHALIC - Eye Exam Eye Exam: EOMI, Normal appearance, PERRL Pupil Exam: NORMAL ACCOMODATION, PERRL - Respiratory Exam Respiratory Exam: Clear to PA & Lateral, UNREMARKABLE - Cardiovascular Exam Cardiovascular Exam: REGULAR RHYTHM - GI/Abdominal Exam GI & Abdominal Exam: Normal Bowel Sounds - Neurological Exam Neurological exam: Alert, CN II-XII Intact, Normal Gait, Oriented x3, Reflexes Normal - Psychiatric Exam Psychiatric exam: Normal Affect, Normal Mood - Skin Skin Exam: Dry, Intact, Normal Color, Warm Discharge Plan - Discharge Medications Prescriptions: Aspirin [Ecotrin] 81 mg PO DAILY #30 tabec Atorvastatin [Lipitor] 40 mg PO DIN #30 tab Clopidogrel [Plavix] 75 mg PO DAILY #30 tab - Follow Up Plan Condition: FAIR Disposition: HOME/ ROUTINE Instructions: Heart Healthy Diet, Cardiac Catheterization (DC), Coronary Stenting (DC), Shortness of Breath (Dyspnea) (DC), Coronary Heart Disease (DC) Additional Instructions: 1. Please return on June for planned cardiac cath with Dr. Davis. I have attached his contact information. 2. Please take the following medications: Aspirin 81mg by mouth daily Lipitor 40mg by mouth before bed Plavix 75mg by mouth daily Antivert 12.5 by mouth three times per day Toprol XL 25 by mouth once daily 3. Please follow up with your Primary care doctor in 7-10 days. 4. Please come back to the ED if symptoms return. Referrals: Lavon Duong MD [Primary Care Provider] - Gary Davis MD [Staff Provider] - <Juliana Rebolledo - Last Filed: 07/08/17 15:07> Provider - Provider Date of Admission: 07/06/17 11:03 Attending physician: Juliana Rebolledo MD Primary care physician: Lavon Duong MD Hospital Course - Lab Results Lab Results: Most Recent Lab Values WBC 6.0 10^3/ul (4.5-11.0) D 07/08/17 05:30 RBC 4.21 10^6/uL (3.5-6.1) 07/08/17 05:30 Hgb 12.1 g/dL (14.0-18.0) L 07/08/17 05:30 Hct 35.7 % (42.0-52.0) L 07/08/17 05:30 MCV 84.8 fl (80.0-105.0) 07/08/17 05:30 MCH 28.7 pg (25.0-35.0) 07/08/17 05:30 MCHC 33.9 g/dl (31.0-37.0) 07/08/17 05:30 RDW 13.4 % (11.5-14.5) 07/08/17 05:30 Plt Count 209 10^3/uL (120.0-450.0) 07/08/17 05:30 MPV 8.7 fl (7.0-11.0) 07/08/17 05:30 Gran % 62.6 % (50.0-68.0) 07/08/17 05:30 Lymph % (Auto) 21.4 % (22.0-35.0) L 07/08/17 05:30 [place] % (Auto) 11.7 % (1.0-6.0) H 07/08/17 05:30 Eos % (Auto) 2.8 % (1.5-5.0) 07/08/17 05:30 Baso % (Auto) 1.5 % (0.0-3.0) 07/08/17 05:30 Gran # 3.73 (1.4-6.5) 07/08/17 05:30 Lymph # (Auto) 1.3 (1.2-3.4) 07/08/17 05:30 [place] # (Auto) 0.7 (0.1-0.6) H 07/08/17 05:30 Eos # (Auto) 0.2 (0.0-0.7) 07/08/17 05:30 Baso # (Auto) 0.09 K/mm3 (0.0-2.0) 07/08/17 05:30 Retic Count 1.04 % (0.5-1.5) 07/05/17 19:07 D-Dimer, Quantitative < 200 ng/mL (0-243) 07/05/17 12:39 Sodium 143 mmol/L (132-148) 07/08/17 05:30 Potassium 4.2 mmol/L (3.6-5.0) 07/08/17 05:30 Chloride 107 mmol/L (98-107) 07/08/17 05:30 Carbon Dioxide 25 mmol/L (21-33) 07/08/17 05:30 Anion Gap 15 (10-20) 07/08/17 05:30 BUN 13 mg/dL (7-21) 07/08/17 05:30 Creatinine 0.7 mg/dl (0.8-1.5) L 07/08/17 05:30 Est GFR ( Amer) > 60 07/08/17 05:30 Est GFR (Non-Af Amer) > 60 07/08/17 05:30 Random Glucose 91 mg/dL (70-110) 07/08/17 05:30 Hemoglobin A1c 5.5 % (4.2-6.5) 07/05/17 12:39 Calcium 8.5 mg/dL (8.4-10.5) 07/08/17 05:30 Phosphorus 3.9 mg/dL (2.5-4.5) 07/06/17 06:00 Magnesium 2.0 mg/dL (1.7-2.2) 07/06/17 06:00 Iron 69 ug/dL (45-180) 07/05/17 12:39 TIBC 322 ug/dL (261-462) 07/05/17 12:39 % Saturation 21 % (20-55) 07/05/17 12:39 Ferritin 82.5 ng/mL 07/05/17 12:39 Total Bilirubin 0.4 mg/dL (0.2-1.3) 07/08/17 05:30 AST 32 U/L (17-59) 07/08/17 05:30 ALT 29 U/L (7-56) 07/08/17 05:30 Alkaline Phosphatase 53 U/L (38-126) 07/08/17 05:30 Lactate Dehydrogenase 594 U/L (333-699) 07/05/17 12:39 Total Creatine Kinase 152 U/L (35-230) 07/05/17 12:39 Troponin I < 0.01 ng/mL 07/06/17 00:40 NT-Pro-B Natriuret Pep 283 pg/mL (0-450) 07/05/17 12:39 Total Protein 6.4 g/dL (5.8-8.3) 07/08/17 05:30 Albumin 3.7 g/dL (3.0-4.8) 07/08/17 05:30 Globulin 2.8 gm/dL 07/08/17 05:30 Albumin/Globulin Ratio 1.3 (1.1-1.8) 07/08/17 05:30 Triglycerides 67 mg/dL (35-160) 07/05/17 12:39 Cholesterol 119 mg/dL (130-200) L 07/05/17 12:39 LDL Cholesterol Direct 55 mg/dL (0-129) 07/05/17 12:39 HDL Cholesterol 43 mg/dL (29-60) 07/05/17 12:39 Vitamin B12 725 pg/mL (239-931) 07/05/17 12:39 Folate > 20.0 ng/mL 07/05/17 12:39 Thyroxine (T4) 7.3 ug/dL (5.5-11.0) 07/06/17 06:00 TSH 3rd Generation 1.38 mIU/mL (0.46-4.68) 07/06/17 06:00 Attending/Attestation - Attestation I have personally seen and examined this patient.: Yes I have fully participated in the care of the patient.: Yes I have reviewed all pertinent clinical information, including history, physical exam and plan: Yes Notes (Text): I have seen and examined the patient at bedside. Agree with the above note with the following additions/ exceptions: Briefly this is 77 year old male with history of cardiac cath s/p 2 stents (RCA & LAD)who came for evaluation of CARRIZALES which lasted for couple of hours. Serial troponin and EKG is unremarkable. D Dimer is negative. Echo pending. Cardiology consult appreciated. Plan for cardiac cath today. BNP and CXR negative for vascular congestion. Upon discharge patient will follow up with Dr Araiza and Dr Davis. Dr Juliana Rebolledo
--- NOTE | 2017-07-08 14:05 | CARD ---
APPROVED REPORT EKG Measurement Heart [id number] 164P51 [id number] <Conclusion> Sinus bradycardia Otherwise normal ECG
== END 2017-07-08 12:33 | disposition home or self-care (01) | DRG 247 ==
LOC: ED 11:33 → ERH 13:48 → 2RNO 18:13 → OBSVTOIN 07-06 11:03
PROVIDERS: ADMIT Hospitalist; ATTEND Hospitalist
PROC: 027034Z Dilation of Coronary Artery, One Artery with Drug-eluting Intraluminal Device, Percutaneous Approach (ICD-10-PCS; principal; 2017-07-07)
PROC: 4A023N7 Measurement of Cardiac Sampling and Pressure, Left Heart, Percutaneous Approach (ICD-10-PCS; 2017-07-07)
PROC: B2111ZZ Fluoroscopy of Multiple Coronary Arteries using Low Osmolar Contrast (ICD-10-PCS; 2017-07-07)
PROC: B2151ZZ Fluoroscopy of Left Heart using Low Osmolar Contrast (ICD-10-PCS; 2017-07-07)
DX: I25.118 Atherosclerotic heart disease of native coronary artery with other forms of angina pectoris (principal); E78.00 Pure hypercholesterolemia, unspecified; I10 Essential (primary) hypertension; Z79.02 Long term (current) use of antithrombotics/antiplatelets; R42 Dizziness and giddiness; Z95.5 Presence of coronary angioplasty implant and graft

== ENCOUNTER 2017-07-14 06:14 | Day surgery (SDC) | payer MEDICARE ==
[2017-07-13 08:58] VITALS: BMI 26.3
[2017-07-14] MEDS ORDERED: Lidocaine 2% Inj (20ml) ONE (06:50)
[2017-07-14] MEDS ORDERED: Phenylephrine 10 mg/ml Inj ONE (06:51)
[2017-07-14] MEDS ORDERED: Midazolam 2 MG/2 ML VIAL ONE ×2 (06:51→07:54)
[2017-07-14] MEDS ORDERED: Iohexol 350mgl/ml 50 ML ONE (06:52)
[2017-07-14] MEDS ORDERED: Iodixanol 320 MG/ML 100 ML BOTTLE IV ONE (06:52)
[2017-07-14] MEDS ORDERED: Iodixanol 320 MG/ML 200 ML BOTTLE IV ONE (06:52)
[2017-07-14] MEDS ORDERED: Nitroglycerin 50mg in D5W 50 MG/250 ML BOTTLE IV ONE (06:53)
[2017-07-14 06:59] LABS: BASO # 0.11 K/mm3 (0.0-2.0); BASO % 2.4 % (0.0-3.0); EOS # 0.2 (0.0-0.7); EOS % 4.6 % (1.5-5.0); GRAN # 2.43 (1.4-6.5); GRAN % 53.2 % (50.0-68.0); LYMPH # 1.3 (1.2-3.4); LYMPH % 29.3 % (22.0-35.0); MEAN CELL VOLUME 85.5 fl (80.0-105.0); MEAN CORPUSCULAR HEMOGLOBIN 28.4 pg (25.0-35.0); MEAN CORPUSCULAR HGB CONC 33.2 g/dl (31.0-37.0); MEAN PLATELET VOLUME 8.9 fl (7.0-11.0); MONO # 0.5 (0.1-0.6); MONO % 10.5 % (1.0-6.0); RBC 4.22 10^6/uL (3.5-6.1); RED CELL DISTRIBUTION WIDTH 13.2 % (11.5-14.5); WHITE BLOOD COUNT 4.6 10^3/ul (4.5-11.0)
[2017-07-14 07:13] LABS: LDL CHOLESTEROL 51 mg/dL (0-129)
[2017-07-14 07:16] LABS: BLOOD UREA NITROGEN 22 mg/dL (7-21); GFR AFRICAN-AMERICAN > 60; GFR NON-AFRICAN AMERICAN > 60; HDL CHOLESTEROL 45 mg/dL (29-60)
[2017-07-14 07:17] LABS: INR 1.03 (0.93-1.08); PROTHROMBIN TIME 11.8 SECONDS (9.4-12.5)
[2017-07-14] MEDS ORDERED: Sodium Chloride 0.9% 1,000 ML IV SCH (09:00)
--- NOTE | 2017-07-14 09:39 | CARDCATH ---
PROCEDURE DATE: 07/14/2017 CARDIAC CATHETERIZATION AND PTCA HISTORY: The patient is a 77-year-old male who presents as documented multivessel CAD who presents for PTCA and stent of the LAD. PROCEDURE: Left heart catheterization with coronary arteriography followed by PTCA and stent of an LAD. The left femoral artery was cannulated with 6-[place] sheath. There were no complications. I performed moderate sedation, which included the presence of an independent trained observer that assisted in monitoring the patient's level of consciousness and physiologic status. After administration of Versed and fentanyl, my intra service time was 30 minutes. The findings on catheterization revealed a right dominant circulation. The RCA revealed a patent stent in the midportion that was placed 1 week ago. His left main artery was unremarkable. The LAD was diffusely diseased with a tortuous midportion of the LAD that revealed a 70-80% stenoses. The patient was started on intravenous Angiomax on the fluoroscopic guide, the guiding catheter was placed to the ostium of the left main artery. An 0.014 ATW wire was used to cross the lesion. A 2 balloon was utilized to predilate the lesion. A 2.25 x 18 mm drug-eluting stent was placed and deployed at 14 atmospheres of pressure. Repeat coronary arteriography after balloon removal revealed an excellent result with no residual stenosis and VERNA III flow. Angio-Seal was used to close the femoral artery site. The patient tolerated the procedure well. In summary, the procedure was successful PTCA and stent of a critical mid LAD lesion. Coronary arteriography revealed two-vessel CAD with a patent stent in the RCA that was placed one week ago and 70-80% tortuous and eccentric lesion in the mid LAD. Given these findings, the patient will need to remain on aspirin indefinitely and Plavix for least a year and undergo a strict cardiac risk reduction program. Gary Davis MD
--- NOTE | 2017-07-14 13:05 | CARD ---
APPROVED REPORT EKG Measurement Heart [id number] 170P55 [id number] <Conclusion> Sinus bradycardia Otherwise normal ECG
--- NOTE | 2017-07-14 13:14 | CARD ---
APPROVED REPORT EKG Measurement Heart [id number] 164P54 [id number] <Conclusion> Sinus bradycardia with premature supraventricular complexes Otherwise normal ECG
--- NOTE | 2017-07-14 21:38 | HP ---
DATE OF EXAM: 07/14/2017 HISTORY OF PRESENT ILLNESS: I was called by Dr. Davis to see him after a cardiac cath this morning. He is in his room 265, lying flat in the bed, is present. He is a 77-year-old white male, who presents for a cardiac catheterization with Dr. Davis with stent placed in his LAD. He is status post cardiac cath. He is comfortable. He is in no acute distress at this time. No chest pain, no shortness of breath, no abdominal pain. PAST MEDICAL HISTORY: He has high cholesterol, dizziness, coronary artery disease. He had cardiac cath before. SOCIAL HISTORY: No alcohol. No smoking. No drugs. FAMILY HISTORY: Hypertension in the family. MEDICATIONS: He takes meclizine, Ecotrin, Lipitor, Plavix, and metoprolol. ALLERGIES: HE HAS NO KNOWN DRUG ALLERGIES. REVIEW OF SYSTEMS: No vision changes. No hearing changes. No sore throat. No chest pain. He did have a little shortness of breath. No cough. No abdominal pain, nausea, vomiting, constipation. No leg pains. Skin, for the most part, is intact. Not nervous or anxious. PHYSICAL EXAMINATION: VITAL SIGNS: 98.5 temperature, 62 pulse, 135/61 blood pressure, 18 respiratory rate, 90% O2 sat on room air. HEENT: Head is atraumatic, normocephalic. Extraocular muscles are intact. Throat is moist. NECK: Supple. Thyroid midline. No palpable appreciable lymphadenopathy. HEART: Regular rate. LUNGS: Decreased breath sounds, but clear to auscultation. ABDOMEN: Soft, nontender. Positive bowel sounds. No guarding, no rebound or CVA tenderness. EXTREMITIES: No edema. SKIN: From what I can tell, is intact. No apparent rashes or ulcers. NEUROLOGIC: GCS is 15. Cranial nerves II through XII grossly intact. He is very calm, nice, no complaints. CURRENT MEDICATIONS: He is currently on Ecotrin, Lipitor, Plavix, and IV fluids. DIAGNOSTIC DATA: He has 145 sodium, potassium 4.7, BUN 22, creatinine 0.9, GFR is greater than 60, sugar is 95, calcium is 9. Triglyceride is 60, cholesterol 118, LDL HDL 45. INR is 1.03. White count is 4.6, hemoglobin 12, hematocrit 36.1, platelets 223. PLAN: He will be lying flat for the next 6 hours, status post cardiac cath and LAD placement of the stent. He will be watched overnight and tomorrow if he does well, will be discharged home with outpatient followup. Amrit Ortega DO [facility]
[2017-07-15 00:02] VITALS: TEMP 97.8
[2017-07-15 06:03] VITALS: RESP 20; O2SAT 96
[2017-07-15 07:00] LABS: BASO # 0.11 K/mm3 (0.0-2.0); EOS # 0.2 (0.0-0.7); EOS % 3.9 % (1.5-5.0); GRAN # 3.13 (1.4-6.5); GRAN % 57.4 % (50.0-68.0); HEMOGLOBIN 11.3 g/dL (14.0-18.0); LYMPH # 1.5 (1.2-3.4); LYMPH % 26.6 % (22.0-35.0); MEAN CORPUSCULAR HEMOGLOBIN 28.8 pg (25.0-35.0); MEAN CORPUSCULAR HGB CONC 33.5 g/dl (31.0-37.0); MEAN PLATELET VOLUME 9.3 fl (7.0-11.0); MONO # 0.6 (0.1-0.6); MONO % 10.1 % (1.0-6.0); RBC 3.92 10^6/uL (3.5-6.1); RED CELL DISTRIBUTION WIDTH 13.4 % (11.5-14.5); WHITE BLOOD COUNT 5.5 10^3/ul (4.5-11.0)
[2017-07-15 07:02] LABS: ALB/GLOB RATIO 1.4 (1.1-1.8); ALBUMIN 3.8 g/dL (3.0-4.8); ALT/SGPT 37 U/L (7-56); AST/SGOT 33 U/L (17-59); BLOOD UREA NITROGEN 25 mg/dL (7-21); CALCIUM 8.6 mg/dL (8.4-10.5); GFR AFRICAN-AMERICAN > 60; GFR NON-AFRICAN AMERICAN > 60
--- NOTE | 2017-07-15 10:14 | PN ---
DATE: 07/15/2017 CARDIOLOGY FOLLOWUP SUBJECTIVE: The patient is asymptomatic, ambulating without symptoms. PHYSICAL EXAMINATION: VITAL SIGNS: Blood pressure is 129/71, the heart rate in the 50s. NECK: Negative JVD. LUNGS: Without rales. HEART: Reveals S1, S2. EXTREMITIES: Without edema. The groin site is stable. LABORATORY DATA: Hemoglobin is 11.3. BUN and creatinine are unremarkable. IMPRESSION: 1. Stable post percutaneous transluminal coronary angioplasty and stent. 2. History of hypercholesterolemia. 3. Hypertension. PLAN: Given these findings, the patient's cardiac status is stable for discharge. Followup and instructions have been given to the patient in detail. Gary Davis MD
[2017-07-15 12:04] VITALS: BP 140/75; PULSE 98
--- NOTE | 2017-07-15 12:18 | DS ---
HOSPITAL COURSE: I saw Lavon resting comfortably in bed. He slept very well last night. He is hungry this morning. He had a cardiac cath with Dr. Davis and stent placement. He is on Ecotrin, Lipitor on Plavix. He has no chest pain or shortness of breath. No abdominal pain. He is walking to the bathroom fine and he is hungry. PHYSICAL EXAMINATION: VITAL SIGNS: He has 97.8 temperature, 55 pulse, 129/71 blood pressure, 20 respiratory rate, 96% O2 saturation on room air. HEENT: Head is atraumatic, normocephalic. HEART: Regular rate. LUNGS: Clear to auscultation. ABDOMEN: Soft. EXTREMITIES: No edema. DATA: He has a 5.5 white count, 11.3 hemoglobin, 33.7 hematocrit, 213 platelets. He has a 138 sodium, potassium 4.7, BUN is 25, creatinine 0.9, GFR is greater than 60, sugar is 90. Calcium is 8.6. Total bili is 0.3, AST is 33, ALT is 37, alkaline phosphatase 5.2, total protein 6.6, albumin is 3.8 and globulin 2.7. He will be seen by Dr. Davis this morning. After Dr. Davis sees him, he can be discharged. He will follow up with his primary care physician and he did very well here. He had CAD with a cardiac cath and stent placement. Amrit Ortega DO
--- NOTE | 2017-07-15 16:52 | CARD ---
APPROVED REPORT EKG Measurement Heart [id number] CO [id number] <Conclusion> Sinus bradycardia Otherwise normal ECG
== END 2017-07-15 14:09 | disposition home or self-care (01) ==
LOC: CATH 06:14 → 2RNO 08:58 → CATH 07-15 14:09
PROVIDERS: ATTEND Internal Medicine Cardiovascular Disease
DX: I25.10 Atherosclerotic heart disease of native coronary artery without angina pectoris (principal); E78.00 Pure hypercholesterolemia, unspecified; I10 Essential (primary) hypertension; Z79.02 Long term (current) use of antithrombotics/antiplatelets; Z79.82 Long term (current) use of aspirin
CPT/HCPCS: 36415; 80048; 80061; 82948; 85025; 85610; 85730; 86850; 86900; 93005; 93454; 99152; 99153; C1725; C1760; C1769 ×2; C1874; C1887; C2629; C9600; J0583; J1644; J2250; J3010; J7040 ×2; Q9966; Q9967

== ENCOUNTER 2018-06-26 06:35 | Outpatient (CLI) | payer MEDICARE, BC | END 2018-06-26 06:36 | disposition home or self-care (01) | LOC: CARDIO 06:35 | DX: I25.10 Atherosclerotic heart disease of native coronary artery without angina pectoris (principal); E78.00 Pure hypercholesterolemia, unspecified ==

== ENCOUNTER 2018-07-11 06:02 | Day surgery (SDC) | payer MEDICARE, BC ==
[2018-07-05 07:45] VITALS: BMI 27.8
[2018-07-11] MEDS ORDERED: Lidocaine PF 2% (5 ml) Inj (For Cardiac Arrhy) ONE (06:53)
[2018-07-11] MEDS ORDERED: Iohexol 350mgl/ml 50 ML ONE (06:54)
[2018-07-11] MEDS ORDERED: Phenylephrine 10 mg/ml Inj ONE (06:54)
[2018-07-11] MEDS ORDERED: Iodixanol 320 MG/ML 100 ML BOTTLE IV ONE (06:54)
[2018-07-11] MEDS ORDERED: Iodixanol 320 MG/ML 200 ML BOTTLE IV ONE (06:54)
[2018-07-11] MEDS ORDERED: Nitroglycerin 50mg in D5W 0 MG/0 ML BOTTLE IV ONE (06:54)
[2018-07-11] MEDS ORDERED: Heparin 2,000 ML IV ONE (06:54)
[2018-07-11 07:05] LABS: BASO # 0.07 K/mm3 (0.0-2.0); BASO % 1.4 % (0.0-3.0); EOS # 0.2 (0.0-0.7); EOS % 3.6 % (1.5-5.0); HEMOGLOBIN 10.7 g/dL (14.0-18.0); LYMPH # 1.2 (1.2-3.4); LYMPH % 24.2 % (22.0-35.0); MEAN CELL VOLUME 84.7 fl (80.0-105.0); MEAN CORPUSCULAR HEMOGLOBIN 28.3 pg (25.0-35.0); MEAN CORPUSCULAR HGB CONC 33.4 g/dl (31.0-37.0); MEAN PLATELET VOLUME 8.5 fl (7.0-11.0); MONO # 0.8 (0.1-0.6); MONO % 15.4 % (1.0-6.0); RBC 3.78 10^6/uL (3.5-6.1); RED CELL DISTRIBUTION WIDTH 13.2 % (11.5-14.5)
[2018-07-11 07:06] LABS: INR 1.05; PARTIAL THROMBOPLASTIN TIME 31.1 Seconds (26.9-38.3); PROTHROMBIN TIME 11.9 SECONDS (9.4-12.5)
[2018-07-11 07:07] LABS: BLOOD UREA NITROGEN 15 mg/dL (7-21); CALCIUM 8.3 mg/dL (8.4-10.5); GFR NON-AFRICAN AMERICAN > 60; HDL CHOLESTEROL 41 mg/dL (29-60)
[2018-07-11 07:18] LABS: LDL CHOLESTEROL 50 mg/dL (0-129)
[2018-07-11] MEDS ORDERED: Midazolam 2 MG/2 ML VIAL ONE ×2 (08:52→09:04)
[2018-07-11] MEDS ORDERED: Adenosine 90 mg/30mL IV ONE (09:18)
[2018-07-11] MEDS ORDERED: Sodium Chloride 0.9% 1,000 ML IV SCH (10:00)
[2018-07-11 10:29] VITALS: TEMP 97.6
--- NOTE | 2018-07-11 10:40 | CARDCATH ---
PROCEDURE DATE: 07/11/2018 CARDIAC CATHETERIZATION HISTORY: The patient is a 78-year-old male who presents with an abnormal stress test. The patient has had multivessel PTCA and stent in the past. He suffers from hypertension and hypercholesterolemia. His last procedure was a year ago. His stress test revealed new defect on nuclear scan, because of this, cardiac catheterization was recommended. PROCEDURE: Left heart catheterization with coronary arteriography and left ventriculogram followed by FFR measurement. The right femoral artery was cannulated with 6-Kazakh sheath. There were no complications. I performed moderate sedation which included the presence of an independent trained observer that assisted in monitoring the patient's level of consciousness and physiologic status. After administration of Versed and fentanyl, my intra-service time was 30 minutes. The findings on catheterization revealed a left ventricle that contracted normally. Estimated ejection fraction is between 60% to 65%. His coronary anatomy revealed a right-dominant circulation. The RCA revealed two stents that were patent. There was diffuse atherosclerosis without critical lesions. The left main artery revealed a 40% stenosis in the distal portion. In the proximal LAD, there was an eccentric 50% stenosis noted. There is diffuse atherosclerosis throughout the LAD distribution as well as a patent stent in the midportion. The diagonal vessels revealed diffuse atherosclerosis. The circumflex artery system revealed diffuse atherosclerosis without critical lesions. The patient was started on intravenous Angiomax and the guiding catheter was placed in the ostium of the left main artery. An FFR wire was placed in the LAD past the proximal 50% LAD lesion. The FFR was measured at 0.92. No manipulation of the LAD stenosis was performed. In addition, PRU was measured and the patient was borderline therapeutic. AngioSeal was used to close the femoral artery site. In summary, the procedure revealed a patent stent in the mid LAD as well as two patent stents in the RCA. There is a 40% distal left main stenosis as well as an eccentric 50% proximal LAD stenosis. FFR measurement was 0.92. No manipulation was necessary of the lesions. LV function is normal. In addition, PRU measurement revealed borderline therapeutic levels of Plavix effectivity. Given these findings, the patient will need to remain on aspirin and Plavix and continue his aggressive cardiac risk reduction program. Peter Davis, MD
[2018-07-11 11:59] VITALS: RESP 18
[2018-07-11 15:06] VITALS: BP 157/70; PULSE 49; O2SAT 97
--- NOTE | 2018-07-11 18:27 | CARD ---
APPROVED REPORT Date of service: 07/11/2018 EKG Measurement Heart [id number] <Conclusion> Sinus bradycardia Otherwise normal ECG
== END 2018-07-11 14:00 | disposition home or self-care (01) ==
LOC: CATH 06:02
PROVIDERS: ATTEND Internal Medicine Cardiovascular Disease
DX: I25.10 Atherosclerotic heart disease of native coronary artery without angina pectoris (principal); E78.00 Pure hypercholesterolemia, unspecified; I10 Essential (primary) hypertension; R94.39 Abnormal result of other cardiovascular function study; Z95.5 Presence of coronary angioplasty implant and graft
CPT/HCPCS: 36415; 80048; 80061; 85025; 85576; 85610; 85730; 86850; 86900; 93005; 93458; 93571; 99152; 99153; C1760; C1769 ×2; C1887; C2629; J0153; J0583; J1644; J2250; J3010; J7030; Q9966; Q9967